=== PATIENT | female | born 2000 | race Caucasian/White ===

== ENCOUNTER 2024-04-22 06:02 | Inpatient (IN) | payer OTHER ==
[2024-04-22] VITALS (7 sets, daily range): BP systolic 109–130; BP diastolic 58–78
[~2024-04-22] VITALS: Ht 154.9 cm; Wt 67.1 kg
[2024-04-22] MEDS ORDERED: PRENATABS RX T1 EACH PO (06:47)
[2024-04-22] MEDS ORDERED: FOLIC ACID0.8 M1 PO (06:48)
[2024-04-22] MEDS ORDERED: MISOPROSTOL 25 MCG/4 ML GEL.W.APPL VAG STA ×2 (07:33→15:55)
[2024-04-22 07:52] LABS: HEMATOCRIT 35.1 % (36.0-45.00); HEMOGLOBIN 11.1 g/dL (12.0-15.00); MEAN CELL VOLUME 83.7 fL (80.00-100.00); MEAN CORPUSCULAR HEMOGLOBIN 26.4 pg (27.00-32.0); MEAN CORPUSCULAR HGB CONC 31.6 g/dl (32.0-36.0); PLATELET COUNT 217 K/uL (150-450); RED BLOOD COUNT 4.19 M/uL (4.00-6.00); RED CELL DISTRIBUTION WIDTH 16.7 % (11.5-14.5)
[2024-04-22 07:54] LABS: PH,URINE 6.5 (5.0-8.0); URINE APPEARANCE Clear; URINE BILIRRUBIN Negative (NEGATIVE); URINE BLOOD Negative; URINE COLOR Yellow; URINE GLUCOSE Negative (NEGATIVE); URINE KETONE Negative (NEGATIVE); URINE LEUKOCYTE Moderate; URINE NITRATE Negative; URINE PROTEIN Negative (NEGATIVE); URINE UROBILINOGEN 0.2 E.U./dl
[2024-04-22 07:57] LABS: URINE BACTERIA 1003.4 uL (0.0-1933); URINE EPITHELIAL CELLS 35.4 uL (0.0-38.8); URINE WBC 68.5 uL (0.0-23.2)
[2024-04-22 08:27] LABS: INR < 0.93; PARTIAL THROMBOPLASTIN TIME 25.3 SECONDS (22.0-34.0)
[2024-04-22 08:32] LABS: ALBUMIN 2.6 gm/dL (3.4-5.0); BILIRUBIN TOTAL 0.22 mg/dL (0.3-1.2); CALCIUM 9.7 mg/dL (8.5-10.1); CREATININE SERUM 0.62 mg/dL (0.55-1.02); GFR 117.28; GLOBULINA 3.9 G/DL (2.4-3.5); POTASSIUM 4.45 mEq/L (3.5-5.1); TOTAL PROTEIN 6.5 gm/dL (6.4-8.2)
[2024-04-22 08:36] LABS: URINE CAST 0.44 uL (0.0-1.40); URINE RBC 0.5 uL (0.0-20.8)
[2024-04-22] MEDS ORDERED: FAMOTIDINE/PF 20 MG/2 ML VIAL IV NR (09:30)
[2024-04-22] MEDS ORDERED: AMPICILLIN SODIUM 2,000 MG VIAL ONE (11:15)
[2024-04-22] MEDS ORDERED: AMPICILLIN SODIUM 2,000 MG VIAL IV ONE (11:45)
[2024-04-22] MEDS ORDERED: MISOPROSTOL 25 MCG/4 ML GEL.W.APPL ONE (15:16)
[2024-04-22] MEDS ORDERED: AMPICILLIN SODIUM 1,000 MG VIAL IV SCH (16:00)
[2024-04-22] MEDS ORDERED: MORPHINE SULFATE 4 MG IV ONE (20:15)
[2024-04-22] MEDS ORDERED: MORPHINE SULFATE 4 MG/ML VIAL IV ONE (22:45)
[2024-04-23 03:38] VITALS: BP 105/57
[2024-04-23 07:32] VITALS: BP 120/71
[2024-04-23] MEDS ORDERED: OXYTOCIN 500 ML IV SCH (07:45)
[2024-04-23 11:21] VITALS: BP 129/60
[2024-04-23] MEDS ORDERED: MORPHINE SULFATE 4 MG/ML CARTRIDGE IV STA (13:39)
[2024-04-23 13:42] VITALS: BP 123/56
[2024-04-23] MEDS ORDERED: FAMOTIDINE/PF 20 MG/2 ML VIAL IV PUSH NR (14:00)
[2024-04-23 15:29] VITALS: BP 128/67
[2024-04-23] MEDS ORDERED: CEFAZOLIN SODIUM 1,000 MG VIAL ONE (16:11)
[2024-04-23] MEDS ORDERED: OXYTOCIN 10 UNITS/ML VIAL ONE ×2 (16:19→19:56)
[2024-04-23] MEDS ORDERED: ERYTHROMYCIN BASE OPHT 1GM EACH TUBE OP ONE (16:19)
[2024-04-23] MEDS ORDERED: CEFAZOLIN SODIUM 1,000 MG VIAL IV ONE (16:30)
[2024-04-23] MEDS ORDERED: IBUprofen 800 MG TABLET PO PRN (17:30)
[2024-04-23] MEDS ORDERED: MORPHINE SULFATE 4 MG/ML CARTRIDGE IV PRN (17:30)
[2024-04-23] MEDS ORDERED: SIMETHICONE 125 MG CAPSULE PO SCH (18:00)
[2024-04-23] MEDS ORDERED: AMPICILLIN SODIUM 1,000 MG VIAL ONE (18:16)
[2024-04-23] MEDS ORDERED: MEPERIDINE HCL 25 MG/ML AMPUL IV ONE (18:35)
[2024-04-23] MEDS ORDERED: RINGERS SOLUTION,LACTATED 1,000 ML IV SCH (18:45)
[2024-04-23] MEDS ORDERED: OXYTOCIN 1,000 ML IV SCH (18:45)
[2024-04-23] MEDS ORDERED: MORPHINE SULFATE 4 MG/ML VIAL IV ONE ×2 (19:05→19:35)
[2024-04-23 20:38] VITALS: BP 127/75
[2024-04-23 23:23] LABS: HEMATOCRIT 31.5 % (36.0-45.00); MEAN CELL VOLUME 83.1 fL (80.00-100.00); MEAN CORPUSCULAR HGB CONC 32.5 g/dl (32.0-36.0); PLATELET COUNT 197 K/uL (150-450); RED BLOOD COUNT 3.79 M/uL (4.00-6.00)
[2024-04-23 23:40] LABS: HEMOGLOBIN 10.2 g/dL (12.0-15.00); MEAN CORPUSCULAR HEMOGLOBIN 26.9 pg (27.00-32.0)
[2024-04-24] VITALS: BP 108/57
[2024-04-24 07:55] VITALS: BP 106/55
[2024-04-24] MEDS ORDERED: DOCUSATE SODIUM 100MG CAP PO SCH (09:00)
[2024-04-24 16:15] VITALS: BP 97/62
[2024-04-24] MEDS ORDERED: BISACODYL 10 MG/SUPP.RECT SUPP.RECT RECTAL STA (19:48)
[2024-04-25] VITALS: BP 91/55
[2024-04-25 08:27] VITALS: BP 102/69
[2024-04-25 16:14] VITALS: BP 103/69
[2024-04-25 16:22] VITALS: BP 103/69
[2024-04-25 20:47] VITALS: BP 110/74
[2024-04-26 00:56] VITALS: BP 103/60
[2024-04-26 08:27] VITALS: BP 106/68
== END 2024-04-26 12:11 | disposition home or self-care (01) | DRG 788 ==
LOC: LDR 06:02 → O/R 04-23 17:20 → OB/GYN 04-23 19:09
PROVIDERS: ADMIT Obstetrics & Gynecology; ATTEND Obstetrics & Gynecology
PROC: 3E0P7VZ Introduction of Hormone into Female Reproductive, Via Natural or Artificial Opening (ICD-10-PCS; 2024-04-22)
PROC: 4A1HXCZ Monitoring of Products of Conception, Cardiac Rate, External Approach (ICD-10-PCS; 2024-04-22)
PROC: 3E033VJ Introduction of Other Hormone into Peripheral Vein, Percutaneous Approach (ICD-10-PCS; 2024-04-23)
PROC: 10D00Z1 Extraction of Products of Conception, Low, Open Approach (ICD-10-PCS; principal; 2024-04-23 16:00)
DX: O82 Encounter for cesarean delivery without indication (principal); O62.1 Secondary uterine inertia; O64.0XX0 Obstructed labor due to incomplete rotation of fetal head, not applicable or unspecified; Z3A.40 40 weeks gestation of pregnancy; Z37.0 Single live birth